=== PATIENT | female | born 1995 | race Caucasian/White ===

== ENCOUNTER 2017-01-02 17:39 | Emergency (ER) | payer OTHER ==
[~2017-01-02] VITALS: Ht 162.6 cm; Wt 87.5 kg
[~2017-01-02 17:39] MED LIST: ACET1TAB40 PO; IBUP800T25 PO; ONDA-43 PO; PROM25TA14 PO
[2017-01-02 17:43] VITALS: Ht 162.6 cm; Wt 87.5 kg
[2017-01-02] MEDS ORDERED: HYDR-906 PO (19:06)
[2017-01-02] MEDS ORDERED: CYCL-319 PO (19:06)
--- NOTE | 2017-01-02 19:12 | ERD ---
ER Documentation Chief Complaint Date/Time DATE: 01/02/17 TIME: 19:09 Chief Complaint lower back pain since yesterday HPI 21-year-old female presents here in emergency department for complaints of lower back pain, left lower back pain radiating to the left lower leg started yesterday. Patient was lifting heavy objects, was cleaning at home, bending a lot, afterwards, started to have the pain, sharp pain, succession scale, radiates from the left lower back and left lower extremity. Patient's has history of sciatica. Patient has this type of pain before. Patient took over-the -counter anti-inflammatory medication at home to help with symptoms,Ketoprofen for pain with mild relief. Patient denies any direct trauma on affected area. Patient denies any incontinence. Patient denies any fever or chills. ROS All systems reviewed and are negative except as per history of present illness. Medications Home Meds Active Scripts Cyclobenzaprine Hcl* (Cyclobenzaprine Hcl*) 10 Mg Tablet, 10 MG PO TID, #15 TAB Prov:JOVANI MCKEON NP 01/02/17 Hydrocodone/Acetaminophen ([place] 5-325 Tablet) 1 Each Tablet, 1 TAB PO Q6H Y for SEVERE PAIN LEVEL 7-10, #20 TAB Prov:JOVANI MCKEON NP 01/02/17 Acetaminophen-Codeine* (Acetaminophen-Cod #3*) 300-30 Mg Tab, 1 TAB PO Q4H Y for PAIN, #15 TAB Prov:MADDISON MCCABE NP 09/23/15 Ibuprofen* (Motrin*) 800 Mg Tab, 800 MG PO Q6, #30 TAB Prov:MADDISON MCCABE NP 09/23/15 Promethazine Hcl* (Phenergan*) 25 Mg Tab, 25 MG PO Q6H Y for VOMITTING for 30 Days Prov:GENEVIEVE GOLDSMITH S. 05/06/15 Ondansetron Hcl* (Zofran*) 4 Mg Tab, 4 MG PO Q6H Y for NAUSEA AND OR VOMITING for 30 Days, TAB 2 Refills Prov:GENEVIEVE GOLDSMITH S. 05/06/15 Allergies Allergies: Coded Allergies: No Known Allergy (Unverified , 09/23/15) PMhx/Soc Medical and Surgical Hx: pt denies Surgical Hx History of Surgery: No Anesthesia Reaction: No Hx Neurological Disorder: No Hx Respiratory Disorders: No Hx Cardiac Disorders: No Hx Psychiatric Problems: No Hx Miscellaneous Medical Probl: Yes (ACUTE KIDNEY FAILURE) Hx Alcohol Use: No Hx Substance Use: No Hx Tobacco Use: No FmHx Family History: No coronary disease, No diabetes, No other Physical Exam Vitals Vital Signs Date Time Temp Pulse Resp B/P Pulse Ox O2 Delivery O2 Flow Rate FiO2 01/02/17 17:43 98.0 78 18 139/62 99 Physical Exam GENERAL: The patient is well developed and appropriate for usual state of health, in no apparent distress. CHEST: Clear to auscultation bilaterally. There are no rales, wheezes or rhonchi. HEART: Regular rate and rhythm. No murmurs, clicks, rubs or gallops. No S3 or S4. ABDOMEN: Soft, nontender and nondistended. Good bowel sounds. No rebound or guarding. No gross peritonitis. No gross organomegaly or masses. No Amor sign or McBurney point tenderness. BACK: No midline or flank tenderness. Positive left straight leg test, tenderness on palpation of paraspinal aspect of the lower lumbar spine, muscle spasms noted. EXTREMITIES: Equal pulses bilaterally. There is no peripheral clubbing, cyanosis or edema. No focal swelling or erythema. Full range of motion. Grossly neurovascularly intact. NEURO: Alert and oriented. Cranial nerves 2-12 intact. Motor strength in all 4 extremities with 5/5 strength. Sensation grossly intact. Normal speech and gait. SKIN: There is no apparent rash or petechia. The skin is warm and dry. HEMATOLOGIC AND LYMPHATIC: There is no evidence of excessive bruising or lymphedema. No gross cervical, axillary, or inguinal lymphadenopathy. Procedures/MDM Medical Decision Making: Patient's pain is most likely consistent with a back strain with sciatica. There is no suspicion for neurovascular compromise. Patient has intact sensation and circulation of the affected extremity and distal extremities. There is low suspicion for septic arthritis. Patient does not have any fever. Radiology exam indicated at this time. No suspicion for cauda equina syndrome. Patient does not have any incontinence. Disposition: Home. Patient is given prescription for [place] for severe pain and Flexeril for muscle spasms. Patient was advised to avoid heavy lifting. Patient was advised that if symptoms are worse, numbness, tingling, high fever, unable to move joint, incontinence, worsening symptoms, to return to emergency department immediately. Otherwise, patient is advised to follow up with the primary care doctor in 5-7 days for reevaluation of symptoms. Departure Diagnosis: Primary Impression: Back pain Back pain location: low back pain Chronicity: acute Back pain laterality: bilateral Sciatica presence: with sciatica Sciatica laterality: sciatica of left side Qualified Code: M54.42 - Acute bilateral low back pain with left- sided sciatica Condition: Stable Patient Instructions: Back Pain W/ Sciatica JOVANI MCKEON NP Jan 02, 2017 19:11
== END 2017-01-02 19:06 | disposition home or self-care (01) ==
LOC: FTE 17:39 → E/R 19:06
DX: M54.42 Lumbago with sciatica, left side (principal)
CPT/HCPCS: 99284

== ENCOUNTER 2017-07-25 18:27 | Emergency (ER) | payer OTHER ==
[~2017-07-25] VITALS: Ht 162.6 cm; Wt 90.5 kg
[~2017-07-25 18:27] MED LIST changes: +CYCL-319 PO; +HYDR-906 PO
[2017-07-25 19:00] VITALS: Ht 162.6 cm; Wt 90.5 kg
--- NOTE | 2017-07-25 19:56 | ERD ---
ER Documentation Chief Complaint Chief Complaint B flank pain x 2 days w/dysuria, hx of pyelo HPI 22-year-old female presents here to emergency department for complaints of bilateral flank pain, urinary urgency frequency dysuria that started 2 days ago. Patient is complaining of pain upon urination, burning pain, 4/10 scale, accompanied with bilateral flank pain. Patient denies any fever chills, nausea or vomiting. Patient had a history of acute kidney failure before, was on dialysis. Patient denies any diarrhea or constipation. Patient denies any hematuria. ROS All systems reviewed and are negative except as per history of present illness. Medications Home Meds Active Scripts Tramadol HCl (Tramadol HCl) 50 Mg Tablet, 50 MG PO Q6 Y for SEVERE PAIN LEVEL 7- 10, #20 TAB Prov:JOVANI MCKEON NP 07/25/17 Phenazopyridine Hcl* (Pyridium*) 200 Mg Tab, 200 MG PO TID Y for URINARY PAIN, # 6 TAB Prov:JOVANI MCKEON NP 07/25/17 Ciprofloxacin Hcl* (Ciprofloxacin Hcl*) 500 Mg Tablet, 500 MG PO BID for 10 Days , TAB Prov:JOVANI MCKEON NP 07/25/17 Cyclobenzaprine Hcl* (Cyclobenzaprine Hcl*) 10 Mg Tablet, 10 MG PO TID, #15 TAB Prov:JOVANI MCKEON NP 01/02/17 Hydrocodone/Acetaminophen ([place] 5-325 Tablet) 1 Each Tablet, 1 TAB PO Q6H Y for SEVERE PAIN LEVEL 7-10, #20 TAB Prov:JOVANI MCKEON NP 01/02/17 Acetaminophen-Codeine* (Acetaminophen-Cod #3*) 300-30 Mg Tab, 1 TAB PO Q4H Y for PAIN, #15 TAB Prov:MADDISON MCCABE NP 09/23/15 Ibuprofen* (Motrin*) 800 Mg Tab, 800 MG PO Q6, #30 TAB Prov:MADDISON MCCABE NP 09/23/15 Promethazine Hcl* (Phenergan*) 25 Mg Tab, 25 MG PO Q6H Y for VOMITTING for 30 Days Prov:GENEVIEVE GOLDSMITH 05/06/15 Ondansetron Hcl* (Zofran*) 4 Mg Tab, 4 MG PO Q6H Y for NAUSEA AND OR VOMITING for 30 Days, TAB 2 Refills Prov:GENEVIEVE GOLDSMITH 05/06/15 Allergies Allergies: Coded Allergies: No Known Allergy (Unverified , 09/23/15) PMhx/Soc Medical and Surgical Hx: pt denies Medical Hx, pt denies Surgical Hx History of Surgery: No Anesthesia Reaction: No Hx Neurological Disorder: No Hx Respiratory Disorders: No Hx Cardiac Disorders: No Hx Psychiatric Problems: No Hx Miscellaneous Medical Probl: Yes (ACUTE KIDNEY FAILURE) Hx Alcohol Use: No Hx Substance Use: No Hx Tobacco Use: No FmHx Family History: No coronary disease, No diabetes, No other Physical Exam Vitals Vital Signs Date Time Temp Pulse Resp B/P Pulse Ox O2 Delivery O2 Flow Rate FiO2 07/25/17 19:00 99.3 70 18 133/92 99 Physical Exam GENERAL: The patient is well developed and appropriate for usual state of health, in no apparent distress. CHEST: Clear to auscultation bilaterally. There are no rales, wheezes or rhonchi. HEART: Regular rate and rhythm. No murmurs, clicks, rubs or gallops. No S3 or S4. ABDOMEN: Soft, nontender and nondistended. Good bowel sounds. No rebound or guarding. No gross peritonitis. No gross organomegaly or masses. No Amor sign or McBurney point tenderness. BACK: No midline or flank tenderness. EXTREMITIES: Equal pulses bilaterally. There is no peripheral clubbing, cyanosis or edema. No focal swelling or erythema. Full range of motion. Grossly neurovascularly intact. NEURO: Alert and oriented. Cranial nerves 2-12 intact. Motor strength in all 4 extremities with 5/5 strength. Sensation grossly intact. Normal speech and gait. SKIN: There is no apparent rash or petechia. The skin is warm and dry. HEMATOLOGIC AND LYMPHATIC: There is no evidence of excessive bruising or lymphedema. No gross cervical, axillary, or inguinal lymphadenopathy. Result Diagram: 07/25/17194907/25/171949 Results 24 hrs Laboratory Tests Test 07/25/17 19:45 07/25/17 19:50 Urine Color YELLOW Urine Clarity SLIGHTLY CLOUDY Urine pH 6.0 Urine Specific [place] 1.024 Urine Ketones NEGATIVEmg/dL Urine Nitrite NEGATIVEmg/dL Urine Bilirubin NEGATIVEmg/dL Urine Urobilinogen 1+mg/dL Urine Leukocyte Esterase 3+[place]/ul Urine Microscopic RBC 50/HPF Urine Microscopic WBC > 182/HPF Urine Squamous Epithelial Cells FEW/HPF Urine Bacteria FEW/HPF Urine Mucus FEW/HPF Urine Hemoglobin 1+mg/dL Urine Glucose NEGATIVEmg/dL Urine Total Protein 2+mg/dl White Blood Count 13.510^3/ul Red Blood Count 5.0810^6/ul Hemoglobin 15.5g/dl Hematocrit 46.3% Mean Corpuscular Volume 91.1fl Mean Corpuscular Hemoglobin 30.5pg Mean Corpuscular Hemoglobin Concent 33.5g/dl Red Cell Distribution Width 11.6% Platelet Count 20829^3/UL Mean Platelet Volume 9.7fl Neutrophils % 63.3% Lymphocytes % 28.6% Monocytes % 5.8% Eosinophils % 1.4% Basophils % 0.3% Nucleated Red Blood Cells % 0.0/100WBC Neutrophils # 8.510^3/ul Lymphocytes # 3.910^3/ul Monocytes # 0.810^3/ul Eosinophils # 0.210^3/ul Basophils # 0.010^3/ul Nucleated Red Blood Cells # 0.010^3/ul Sodium Level 145mmol/L Potassium Level 3.9mmol/L Chloride Level 105mmol/L Carbon Dioxide Level 27mmol/L Anion Gap 17 Blood Urea Nitrogen 9mg/dl Creatinine 0.92mg/dl Glucose Level 90mg/dl Calcium Level 9.0mg/dl Total Bilirubin 0.4mg/dl Direct Bilirubin 0.00mg/dl Indirect Bilirubin 0.4mg/dl Aspartate Amino Transf (AST/SGOT) 26IU/L Alanine Aminotransferase (ALT/SGPT) 59IU/L Alkaline Phosphatase 78IU/L Total Protein 8.4g/dl Albumin 4.7g/dl Globulin 3.70g/dl Albumin/Globulin Ratio 1.27 Lipase 74U/L Current Medications Medications (Trade) Dose Ordered Sig/Sandra Route PRN Reason Start Time Stop Time Status Last Admin Dose Admin Ceftriaxone Sodium (Rocephin) 1 gm ONCE ONCE IM 07/25/17 21:00 07/25/17 21:07 DC PROCEDURE: CT Abdomen and Pelvis without contrast CLINICAL INDICATION: Abdominal pain, bilateral flank pain TECHNIQUE: Transaxial images were obtained through the abdomen and pelvis on a multi-slice scanner without the intravenous contrast administration. No oral contrast had previously been given. Sagittal and coronal re-formations were subsequently reconstructed. One or more of the following dose reduction techniques were used: - Automated exposure control. - Adjustment of the mA and/or kV according to patient size. - Use of iterative reconstruction technique. Radiation dose: CTDIvol = 19.03 mGy; DLP = 1104.96 mGy-cm. COMPARISON: 04/23/2015 FINDINGS: Lung bases: The visualized lung bases appear unremarkable. Liver: The liver is mildly enlarged with no focal lesion identified. Gallbladder: The gallbladder is again contracted and there is again cholelithiasis. Bile ducts: The intra and extrahepatic bile ducts are normal in caliber. Pancreas: Appears normal with no mass or inflammation evident. Spleen: Normal in size with no focal lesion. Adrenals: Normal with no mass identified. Kidneys, ureters and bladder: The kidneys are normal in size and there is no mass, pathological calcification, or hydronephrosis evident. There is no perinephric stranding. The ureters are normal in caliber and no ureteroliths are identified. The bladder appears unremarkable. Reproductive organs: The uterus is midline. No adnexal mass is evident. Stomach and bowel: The bowel appears unremarkable with no evidence of bowel obstruction or inflammation. The stomach appears unremarkable. Appendix: A normal vermiform appendix is evident. Peritoneum: No free intraperitoneal fluid or air is identified. Aorta: Normal in caliber with no aneurysmal dilatation. IVC: Unremarkable. Lymph nodes: No pathologically enlarged nodes are identified. Osseous structures: The osseous elements appear intact. IMPRESSION: 1. Since the previous CT of 04/23/2015, there is again cholelithiasis and a contracted gallbladder. There is no gallbladder wall thickening or bile duct dilatation and the pancreas appears unremarkable. 2. Persistent mild hepatomegaly with no focal lesion. 3. There is again no evidence of bowel obstruction or inflammation with a normal-appearing vermiform appendix. 4. There is again no evidence of urinary outflow obstruction or ureterolithiasis within normal appearing bladder. 5. There is no free intraperitoneal fluid or air. Preston Nguyen Physician Date Time Electronically viewed and signed by Physician Bridger on 07/25/2017 20:23 RH/ CC: JOVANI MCKEON NP Procedures/MDM Medical Decision Making: Patient's symptoms most likely is consistent with pyelonephritis. Outpatient management is appropriate at this time since patient is stable, no symptoms of sepsis. No symptoms of any septic stone. Kidney functions are normal. There is low suspicion for abdominal emergencies at this time. Patients abdominal exam is normal at this time. Patients radiology exam does not show any abdominal emergencies at this time. There is low suspicion for appendicitis, cholecystitis, abdominal aortic aneurysms or peritonitis at this time. There is low suspicion for sepsis. Patient appears well and is hemodynamically stable. Disposition: Home. Condition: Stable Prescription ciprofloxacin, Pyridium, tramadol, Instructions: Patient is advised to take medications as prescribed. Patient is advised to rest, increase fluid intake and do brat diet for next 1-2 days and progress as tolerated. Patient is advised that if symptoms are worse, severe abdominal pain, uncontrolled vomiting, high fever, severe flank pain, worst signs and symptoms, to return to the emergency department immediately. Otherwise, patient can follow up with primary care doctor in 5-7 days. Disclaimer: Inadvertent spelling and grammatical errors are likely due to EHR/ dictation software use and do not reflect on the overall quality of patient care. Also, please note that the electronic time recorded on this note does not necessarily reflect the actual time of the patient encounter. Departure Diagnosis: Primary Impression: Pyelonephritis Condition: Stable Patient Instructions: Pyelonephritis, Female (Adult) Additional Instructions: Patient is advised to take medications as prescribed. Patient is advised to rest , increase fluid intake and do brat diet for next 1-2 days and progress as tolerated. Patient is advised that if symptoms are worse, severe abdominal pain , uncontrolled vomiting, high fever, severe flank pain, worst signs and symptoms , to return to the emergency department immediately. Otherwise, patient can follow up with primary care doctor in 5-7 days. JOVANI MCKEON NP Jul 25, 2017 19:56
[2017-07-25 19:59] LABS: ADD UMIC YES; UR ASCORBIC ACID 20 mg/dL (NEGATIVE); UR BACTERIA FEW /HPF (NONE SEEN); UR BILIRUBIN (Dip) NEGATIVE (NEGATIVE); UR BLOOD (Dip) 1+ mg/dL (NEGATIVE); UR CLARITY SLIGHTLY CLOUDY (CLEAR); UR COLOR YELLOW (YELLOW); UR GLUCOSE (Dip) NEGATIVE (NEGATIVE); UR KETONES (Dip) NEGATIVE (NEGATIVE); UR LEUKOCYTE ESTERASE (Dip) 3+ Leu/ul (NEGATIVE); UR MUCUS FEW /HPF (NONE SEEN); UR NITRITE (Dip) NEGATIVE (NEGATIVE); UR RBC 50 /HPF (0-5); UR SPECIFIC GRAVITY (Dip) 1.024 (1.003-1.030); UR SQUAMOUS EPITHELIAL CELL FEW /HPF (FEW); UR TOTAL PROTEIN (Dip) 2+ mg/dl (NEGATIVE); UR UROBILINOGEN (Dip) 1+ mg/dL (NEGATIVE)
[2017-07-25 20:17] LABS: BASOPHILS % 0.3 % (0.0-2.0); EOSINOPHILS # 0.2 10^3/ul (0.0-0.5); EOSINOPHILS % 1.4 % (0.0-7.0); HEMATOCRIT 46.3 % (37.0-47.0); HEMOGLOBIN 15.5 g/dl (12.0-16.0); LYMPHOCYTES # 3.9 10^3/ul (0.8-2.9); LYMPHOCYTES % 28.6 % (15.0-51.0); MEAN CORPUSCULAR HEMOGLOBIN 30.5 pg (29.0-33.0); MEAN CORPUSCULAR HGB CONC 33.5 g/dl (32.0-37.0); MEAN CORPUSCULAR VOLUME 91.1 fl (82.0-101.0); MEAN PLATELET VOLUME 9.7 fl (7.4-10.4); MONOCYTE # 0.8 10^3/ul (0.3-0.9); MONOCYTES % 5.8 % (0.0-11.0); NEUTROPHIL # 8.5 10^3/ul (1.6-7.5); NEUTROPHILS % 63.3 % (39.0-77.0); PLATELET COUNT 475 10^3/UL (140-415); RED BLOOD COUNT 5.08 10^6/ul (4.20-5.40); RED CELL DISTRIBUTION WIDTH 11.6 % (11.5-14.5); WHITE BLOOD COUNT 13.5 10^3/ul (4.8-10.8)
[2017-07-25 20:23] LABS: ALBUMIN 4.7 g/dl (3.3-4.9); ALBUMIN/GLOBULIN RATIO 1.27; BILIRUBIN,INDIRECT 0.4 mg/dl (0-1.1); BILIRUBIN,TOTAL 0.4 mg/dl (0.2-1.3); CREATININE 0.92 mg/dl (0.44-1.00); POTASSIUM 3.9 mmol/L (3.5-5.1); TOTAL PROTEIN 8.4 g/dl (6.1-8.1)
--- NOTE | 2017-07-25 20:23 | RADRPT ---
PROCEDURE: CT Abdomen and Pelvis without contrast CLINICAL INDICATION: Abdominal pain, bilateral flank pain TECHNIQUE: Transaxial images were obtained through the abdomen and pelvis on a multi-slice scanner without the intravenous contrast administration. No oral contrast had previously been given. Sagit keven and coronal re-formations were subsequently reconstructed. One or more of the following dose reduction techniques were used: - Automated exposure control. - Adjustment of the mA and/or kV according to patient size. - Use of iterative reconstruction technique. Radiation dose: CTDIvol = 19.03 mGy; DLP = 1104.96 mGy-cm. COMPARISON: 04/23/2015 FINDINGS: Lung bases: The visualized lung bases appear unremarkable. Liver: The liver is mildly enlarged with no focal lesion identified. Gallbladder: The gallbladder is again contracted and there is again cholelithiasis. Bile ducts: The intra and extrahepatic bile ducts are normal in caliber. Pancreas: Appears normal with no mass or inflammation evident. Spleen: Normal in size with no focal lesion. Adrenals: Normal with no mass identified. Kidneys, ureters and bladder: The kidneys are normal in size and there is no mass, pathological calc ification, or hydronephrosis evident. There is no perinephric stranding. The ureters are normal in c aliber and no ureteroliths are identified. The bladder appears unremarkable. Reproductive organs: The uterus is midline. No adnexal mass is evident. Stomach and bowel: The bowel appears unremarkable with no evidence of bowel obstruction or inflammat ion. The stomach appears unremarkable. Appendix: A normal vermiform appendix is evident. Peritoneum: No free intraperitoneal fluid or air is identified. Aorta: Normal in caliber with no aneurysmal dilatation. IVC: Unremarkable. Lymph nodes: No pathologically enlarged nodes are identified. Osseous structures: The osseous elements appear intact. IMPRESSION: 1. Since the previous CT of 04/23/2015, there is again cholelithiasis and a contracted gallbladder. There is no gallbladder wall thickening or bile duct dilatation and the pancreas appears unremarkab le. 2. Persistent mild hepatomegaly with no focal lesion. 3. There is again no evidence of bowel obstruction or inflammation with a normal-appearing vermifor m appendix. 4. There is again no evidence of urinary outflow obstruction or ureterolithiasis within normal appe aring bladder. 5. There is no free intraperitoneal fluid or air. Physician Bridger Date Time Electronically viewed and signed by Preston Nguyen Physician on 07/25/2017 20:23 /
[2017-07-25] MEDS ORDERED: CEFTRIAXONE 1 GM INJ IM ONE (21:00)
[2017-07-25] MEDS ORDERED: TRAM50TA2 PO (21:14)
[2017-07-25] MEDS ORDERED: PHEN-538 PO (21:14)
[2017-07-25] MEDS ORDERED: CIPR500T4 PO (21:14)
[2017-07-25 21:55] VITALS: BP 131/89; PULSE 72; RESP 18; TEMP 98.2
[2017-07-25] MEDS ORDERED: LIDOCAINE 1% (MDV) 20 ML INJ IM ONE (22:00)
== END 2017-07-25 22:03 | disposition home or self-care (01) ==
LOC: FTE 18:27
DX: N12 Tubulo-interstitial nephritis, not specified as acute or chronic (principal); Z99.2 Dependence on renal dialysis
CPT/HCPCS: 36415; 74176; 80053; 81001; 83690; 85025; 96372; J0696; Z7502; Z7610

== ENCOUNTER 2019-02-03 14:27 | Emergency (ER) | payer OTHER ==
[~2019-02-03] VITALS: Wt 86.5 kg
[~2019-02-03 14:27] MED LIST changes: +CIPR500T4 PO; -CYCL-319 PO; +CYCL10TA7 PO; +HYDR-4011 PO; -HYDR-906 PO; -IBUP800T25 PO; +IBUP800T48 PO; -ONDA-43 PO; +ONDA4TAB13 PO; +PHEN-538 PO; +TRAM50TA2 PO
--- NOTE | 2019-02-03 15:46 | ERD ---
ER Documentation Chief Complaint Chief Complaint DYSURIA X 4 DAYS HPI 23-year-old female, with history of acute renal failure secondary to rhabdomyolysis 3 years ago, presents to the emergency department, complaining of 3 days with dysuria, hematuria and back pain. The patient denies fever, no chills, no nausea or vomiting. ROS All systems reviewed and are negative except as per history of present illness. Medications Home Meds Active Scripts Acetaminophen* (Tylenol*) 325 Mg Tablet, 2 TAB PO Q6 PRN for PAIN AND OR ELEVATED TEMP, #20 TAB Prov:SOFIA GALVIN MD 02/03/19 Ciprofloxacin Hcl* (Ciprofloxacin Hcl*) 250 Mg Tablet, 250 MG PO BID, #14 TAB Prov:SOFIA GALVIN MD 02/03/19 Tramadol HCl (Tramadol HCl) 50 Mg Tablet, 50 MG PO Q6 PRN for SEVERE PAIN LEVEL 7-10, #20 TAB Prov:JOVANI MCKEON NP 07/25/17 Phenazopyridine Hcl* (Pyridium*) 200 Mg Tab, 200 MG PO TID PRN for URINARY PAIN, #6 TAB Prov:JOVANI MCKEON NP 07/25/17 Ciprofloxacin Hcl* (Ciprofloxacin Hcl*) 500 Mg Tablet, 500 MG PO BID for 10 Days, TAB Prov:JOVANI MCKEON NP 07/25/17 Cyclobenzaprine Hcl* (Cyclobenzaprine Hcl*) 10 Mg Tablet, 10 MG PO TID, #15 TAB Prov:JOVANI MCKEON NP 01/02/17 Hydrocodone/Acetaminophen (Delaplane 5-325 Tablet) 1 Each Tablet, 1 TAB PO Q6H PRN for SEVERE PAIN LEVEL 7-10, #20 TAB Prov:JOVANI MCKEON NP 01/02/17 Acetaminophen-Codeine* (Acetaminophen-Cod #3*) 300-30 Mg Tab, 1 TAB PO Q4H PRN for PAIN, #15 TAB Prov:MADDISON MCCABE NP 09/23/15 Ibuprofen* (Motrin*) 800 Mg Tab, 800 MG PO Q6, #30 TAB Prov:MADDISON MCCABE NP 09/23/15 Promethazine Hcl* (Phenergan*) 25 Mg Tab, 25 MG PO Q6H PRN for VOMITTING for 30 Days Prov:GENEVIEVE GOLDSMITH S. 05/06/15 Ondansetron Hcl* (Zofran*) 4 Mg Tab, 4 MG PO Q6H PRN for NAUSEA AND OR VOMITING for 30 Days, TAB 2 Refills Prov:GENEVIEVE GOLDSMITH S. 05/06/15 Allergies Allergies: Coded Allergies: No Known Allergy (Unverified , 09/23/15) PMhx/Soc History of Surgery: Yes (RHAMBDOMYOLYSIS) Anesthesia Reaction: No Hx Neurological Disorder: No Hx Respiratory Disorders: No Hx Cardiac Disorders: No Hx Psychiatric Problems: No Hx Miscellaneous Medical Probl: Yes (ACUTE KIDNEY FAILURE, ACUTE LIVER FAILURE) Hx Alcohol Use: No Hx Substance Use: No Hx Tobacco Use: No Smoking Status: Never smoker FmHx Mother and maternal grandmother with diabetes, father with hypertension. Family History: diabetes Physical Exam Vitals Vital Signs Date Temp Pulse Resp B/P (MAP) Pulse Ox O2 O2 Flow FiO2 Time Delivery Rate 02/03/19 97.6 81 18 133/79 100 14:33 (97) Physical Exam Const: No acute distress Head: Atraumatic Eyes: Normal Conjunctiva ENT: Normal External Ears, Nose and Mouth. Neck: Full range of motion. No meningismus. Resp: Clear to auscultation bilaterally Cardio: Regular rate and rhythm, no murmurs Abd: Soft, non tender, non distended. Normal bowel sounds Skin: No petechiae or rashes Back: No midline or flank tenderness Ext: No cyanosis, or edema Neur: Awake and alert Psych: Normal Mood and Affect Result Diagram: 02/03/19 1546 02/03/19 1546 Results 24 hrs Laboratory Tests Test 02/03/19 15:46 White Blood Count 11.2 10^3/ul Red Blood Count 4.91 10^6/ul Hemoglobin 14.8 g/dl Hematocrit 45.0 % Mean Corpuscular Volume 91.6 fl Mean Corpuscular Hemoglobin 30.1 pg Mean Corpuscular Hemoglobin Concent 32.9 g/dl Red Cell Distribution Width 11.7 % Platelet Count 363 10^3/UL Mean Platelet Volume 10.5 fl Immature Granulocytes % 0.300 % Neutrophils % 72.5 % Lymphocytes % 20.4 % Monocytes % 5.7 % Eosinophils % 0.8 % Basophils % 0.3 % Nucleated Red Blood Cells % 0.0 /100WBC Immature Granulocytes # 0.030 10^3/ul Neutrophils # 8.1 10^3/ul Lymphocytes # 2.3 10^3/ul Monocytes # 0.6 10^3/ul Eosinophils # 0.1 10^3/ul Basophils # 0.0 10^3/ul Nucleated Red Blood Cells # 0.0 10^3/ul Urine Color RED Urine Clarity SLIGHTLY CLOUDY Urine pH 7.0 Urine Specific [place] 1.002 Urine Ketones NEGATIVE mg/dL Urine Nitrite NEGATIVE mg/dL Urine Bilirubin NEGATIVE mg/dL Urine Urobilinogen NEGATIVE mg/dL Urine Leukocyte Esterase 3+ [place]/ul Urine Microscopic RBC 0 /HPF Urine Microscopic WBC 71 /HPF Urine Bacteria FEW /HPF Urine Hemoglobin 3+ mg/dL Urine Glucose NEGATIVE mg/dL Urine Total Protein NEGATIVE mg/dl Urine Test NEGATIVE Sodium Level 142 mmol/L Potassium Level 3.9 mmol/L Chloride Level 106 mmol/L Carbon Dioxide Level 27 mmol/L Anion Gap 9 Blood Urea Nitrogen 6 mg/dl Creatinine 0.62 mg/dl Est Glomerular Filtrat Rate mL/min > 60 mL/min Glucose Level 91 mg/dl Calcium Level 8.8 mg/dl Current Medications Medications Dose Sig/Sandra Start Time Status Last (Trade) Ordered Route PRN Stop Time Admin Dose Reason Admin Sodium 500 ml @ Q1H ONCE 02/03/19 DC 02/03/19 Chloride 500 mls/hr IV 16:00 02/03/19 15:57 16:59 Ceftriaxone 50 ml @ ONCE ONCE 02/03/19 DC 02/03/19 Sodium 100 mls/hr IVPB 16:30 02/03/19 16:28 16:59 Procedures/MDM Differential diagnosis include but not limited to: UTI, colitis, gastroenteritis, kidney stones, irritable bowel syndrome, inflammatory bowel syndrome, malabsorption syndrome, cholelithiasis, food intolerance, medication side effect, pancreatitis, diverticulitis, bowel obstruction. Low suspicion for acute abdomen Physical examination and clinical presentation consistent most likely with urinary tract infection. During the ED course the patient remained stable, no new complaints. Results and clinical impression discussed with patient who agrees with charli joyce. The patient is stable to be treated outpatient and will be discharged home, some side effects of prescribed medications (headache, rash, nausea, vomiting, diarrhea, drowsiness, habituation, bleeding, hypertension, interactions with other medications) were reviewed. The patient was instructed to follow up with the primary care provider in the next 48h. If symptoms persist, worsen or new symptoms develop, then patient should return to the ED immediately. Instructions explained and given directly by me to the patient with acknowledgment and demonstrated understanding. Disclaimer: Inadvertent spelling and grammatical errors are likely due to EHR/dictation software use and do not reflect on the overall quality of patient care. Also, please note that the electronic time recorded on this note does not necessarily reflect the actual time of the patient encounter. Departure Diagnosis: Primary Impression: Urinary tract infection Condition: Stable Additional Instructions: Thank you very much for allowing us to participate in your care. Your health and safety is our top priority at [facility]. The evaluation in the emergency department has been done to rule out an acute emergency, therefore, chronic conditions like malignancy or other diseases have not been evaluated; therefore, you need to follow up with a primary care provider in the next 48h. If symptoms persist, worsen or new symptoms develop, then patient should return to the ED immediately. Call your primary care doctor TOMORROW for an appointment during the next 2-4 days and bring all the information provided. Have prescriptions filled and follow precisely the directions on the label. If the symptoms get worse and your provider is unavailable, return to the Emergency Department immediately. SOFIA GALVIN MD February 03, 2019 15:46
[2019-02-03] MEDS ORDERED: SOD CHLORIDE 0.9% 500 ML IV ONE (16:00)
[2019-02-03] MEDS ORDERED: CEFTRIAXONE 1 GM/50 ML (PMX) 50 ML IVPB ONE (16:30)
[2019-02-03] MEDS ORDERED: ACET325T33 PO (17:15)
[2019-02-03] MEDS ORDERED: CIPR-193 PO (17:15)
[2019-02-03 17:33] VITALS: BP 122/78; PULSE 67; RESP 18
== END 2019-02-03 17:35 | disposition home or self-care (01) ==
LOC: FTE 14:27
DX: N39.0 Urinary tract infection, site not specified (principal)
CPT/HCPCS: 36415; 80048; 81001; 84703; 85025; 87086; 96361; 96365; J0696; J7040; Z7502